=== PATIENT | male | born 1945 | race Caucasian/White ===

== ENCOUNTER 2018-02-27 11:51 | Inpatient (IN) ==
--- NOTE | 2018-02-27 13:37 | Emergency Department Report ---
General Adult HPI - General Chief complaint: Dizziness Stated complaint: high bp, dehydration Time Seen by Provider: 02/27/18 13:37 Source: patient Mode of arrival: ambulatory Limitations: no limitations - History of Present Illness HPI narrative: Patient is a 72-year-old male, presents emergency room for evaluation of nausea dehydration. Patient's been having nausea for 3-4 weeks. Doesn't really feel like eating or drinking has lost several pounds in weight. Patient has seen his primary medical physician for this, however no real elucidation of symptoms. Patient went to the doctor's office today requesting Zofran for his severe nausea at that time was found to have a blood pressure 80/40 with a heart rate in the 40s. Patient does state he has been seen by Dr. Rajput, cardiology in the past, and was told that he might eventually need a pacemaker his symptoms ever worsen. Patient denies any fevers chills diarrhea constipation or other systemic signs or symptoms. On arrival patient is RVR slower ventricular response running in the 40s although does drop down as low as 30. - Related Data Home Medications Medication Instructions Recorded Confirmed Warfarin Sodium [Coumadin] 5 mg PO VARGAS,WE,FR #0 10/06/10 02/27/18 Garlic [Garlic Oil] 1,000 mg PO DAILY #0 02/22/12 02/27/18 Warfarin Sodium 2.5 mg PO ,,,SA #0 02/28/12 02/27/18 Allopurinol [Zyloprim] 300 mg PO DAILY 02/27/18 02/27/18 Aspirin [ASA] 325 mg PO BID 02/27/18 02/27/18 Cod Liver Oil 1 each PO DAILY 02/27/18 02/27/18 Cyanocobalamin (Vitamin B-12) 2,000 mcg PO DAILY 02/27/18 02/27/18 [Vitamin B-12] Docusate Sodium [Colace] 200 mg PO HS 02/27/18 02/27/18 Ferrous Sulfate [Iron] 325 mg PO DAILY 02/27/18 02/27/18 Fluticasone Propionate 1 spray EA NOSTRIL DAILY 02/27/18 02/27/18 [Fluticasone Propionate] Furosemide [Lasix 40 mg Tab] 40 mg PO BID 02/27/18 02/27/18 Elsie 550 mg PO BID 02/27/18 02/27/18 Losartan Potassium [Cozaar] 50 mg PO DAILY 02/27/18 02/27/18 Oxycodone HCl/Acetaminophen 1 - 2 tab PO Q4-6HPRN PRN 02/27/18 02/27/18 [Oxycodon-Acetaminophen 7.5-325] PEG 3350 17gm PACKET [Miralax] 17 gm PO DAILY 02/27/18 02/27/18 Potassium Chloride [Klor-Con 10] 10 meq PO BID 02/27/18 02/27/18 Pramipexole [Mirapex] 0.25 mg PO HS 02/27/18 02/27/18 Resver/Wine/Bfl/Grpsd/Pc/C/Grp 1 each PO BID 02/27/18 02/27/18 [Red Wine Complex Capsule] Vitamin E 100 unit PO DAILY 02/27/18 02/27/18 Zinc 50 mg PO BID 02/27/18 02/27/18 levOCARNitine [l-Carnitine] 500 mg PO BID 02/27/18 02/27/18 Allergies Allergy/AdvReac Type Severity Reaction Status Date / Time blue dye Allergy Intermediate FEVER, Verified 02/27/18 12:24 SEVERE HEADACHE morphine Allergy Intermediate HALLUCINATE Verified 02/27/18 12:24 S Tetanus Vaccines and Toxoid Allergy Intermediate ARM SWELLS Verified 02/27/18 12 :24 sulfamethoxazole Allergy Unknown Verified 02/27/18 12:24 trimethoprim Allergy Unknown Verified 02/27/18 12:24 ether AdvReac Mild NAUSEA & Verified 02/27/18 12:24 VOMITING hydrocodone bit AdvReac Mild HEADACHE Uncoded 03/16/12 21:37 Review of Systems Constitutional: Denies: fever, chills, weakness Eyes: Denies: eye pain, eye discharge, vision change ENT: Denies: ear pain, throat pain, dental pain Cardiovascular: Denies: chest pain, palpitations, dyspnea on exertion Respiratory: Denies: cough, dyspnea, wheezes Gastrointestinal: Reports: nausea. Denies: abdominal pain, vomiting Genitourinary: Denies: dysuria, frequency Integumentary: Denies: alopecia Neurological: Denies: headache Psychiatric: Denies: anxiety Endocrine: Denies: fatigue Hematological/Lymphatic: Denies: easy bleeding PFSH Patient Stated Medical History Cataracts Yes: surgery 2013 Cardiac Arrhythmia Yes: bradycardia Sleep Apnea Yes Hx Kidney Stones Yes - Social History Smoking status: Never smoker Substance use type: does not use Alcohol intake frequency: does not drink Physical Exam - Limitations Limitations: no limitations - General General appearance: alert, in no apparent distress - Head Head exam: normocephalic - Eye Eye exam: Present: PERRL, EOMI - ENT ENT exam: Present: normal oropharynx, mucous membranes moist, TM's normal bilaterally - Neck Neck exam: Present: full ROM - Chest Chest inspection: Present: symmetric chest wall rise. Absent: tenderness - Respiratory Respiratory exam: Present: normal lung sounds bilaterally. Absent: respiratory distress, wheezes, stridor - Cardiovascular Cardiovascular exam: Present: normal rhythm, bradycardia, normal heart sounds - Abdominal Exam Abdominal exam: Present: soft, normal bowel sounds. Absent: distention, tenderness - Extremities Exam Extremities exam: Present: full ROM - Back Exam Back exam: Present: full ROM - Skin Skin exam: Present: warm, dry - Neurological Exam Neurological exam: Present: alert, oriented X3 - Psychiatric Psychiatric exam: Present: normal affect, normal mood Course Vital Signs Temperature 98 F 02/27/18 11:58 Pulse Rate 43 L 02/27/18 11:58 Respiratory Rate 16 02/27/18 11:58 Blood Pressure 121/79 02/27/18 11:58 Pulse Oximetry 99 02/27/18 11:58 Temperature 98 F 02/28/18 16:00 Pulse Rate 32 L 02/28/18 17:15 Respiratory Rate 24 02/28/18 17:15 Blood Pressure 133/63 02/28/18 17:01 Pulse Oximetry 99 02/28/18 17:15 Medical Decision Making - [facility] Narrative Medical decision making narrative: Have found no clearly sedation for patient's nausea, and less it's related to symptomatic bradycardia with rate as low as 30. He did have one episode where he dropped down to 29. Discuss case with Dr. Rajput, admit to the hospitalist service he will follow- up for possible pacemaker placement - Medical Records Medical records reviewed: Yes: I reviewed the patient's medical records. - Lab Data Lab results reviewed: Yes: I reviewed the patient's lab results. Result diagrams: 02/28/18 04:25 02/28/18 04:25 Lab Results 02/27/18 02/27/18 02/27/18 Range/Units 14:03 14:03 14:03 WBC 7.6 (4.5-11.0) T/MM3 RBC 4.10 L (4.50-5.90) M/MM3 Hgb 12.8 L (13.5-17.5) GM/DL Hct 39.7 L (41-53) % MCV 96.8 (80-100) UM3 MCH 31.2 (26-34) UUG MCHC 32.2 (31-37) GM/DL RDW Std Deviation 47.7 (36.9-50.2) FL Plt Count 230 (130-400) T/MM3 MPV 10.2 (9.4-12.4) UM3 Immature Gran % (Auto) (0.0-0.5) % Neut % (Auto) (33-66) % Lymph % (Auto) (23-45) % Mitchell % (Auto) (0-9.0) % Eos % (Auto) (0-4) % Baso % (Auto) (0-2) % Neut # (Auto) (1.8-7.7) T/MM3 Lymph # (Auto) (1-4.8) T/MM3 Mitchell # (Auto) (0-0.8) T/MM3 Eos # (Auto) (0-0.5) T/MM3 Baso # (Auto) (0-0.2) T/MM3 Abs Immat Gran (auto) (0.00-0.03) T/MM3 Neutrophils % (Manual) 57.0 (33-66) % Lymphocytes % (Manual) 33.0 (23-45) % Monocytes % (Manual) 7.0 (0-9.0) % Eosinophils % (Manual) 3.0 (0-4) % Neutrophils # (Manual) 4.3 (1.8-7.7) T/MM3 Lymphocytes # (Manual) 2.5 (1-4.8) T/MM3 Monocytes # (Manual) 0.5 (0-0.8) T/MM3 Eosinophils # (Manual) 0.2 (0-0.5) T/MM3 RBC Morph Comment Normal INR (0.92-1.18) D-Dimer < 150 (0-230) NG/ML Turbidity < 20 (0-20) Sodium 141 (134-144) MEQ/L Potassium 4.2 (3.6-5) MEQ/L Chloride 99 (98-107) MEQ/L Carbon Dioxide 30 (22-30) MEQ/L Anion Gap 12 (5-15) meq/L BUN 41.0 H (9-20) MG/DL Creatinine 1.6 H (0.8-1.5) mg/dL GFR Calculation 43 BUN/Creatinine Ratio 26 (6-26) RATIO Glucose 92 (75-110) MG/DL Calculated Osmolality 281 H (261-280) MOSM/KG Calcium 9.9 (8.4-10.2) MG/DL Magnesium (1.6-2.3) MG/DL Total Bilirubin 0.70 (0.20-1.30) MG/DL Icterus Index < 2 (0-7) AST 27 (17-59) U/L ALT 20 (1-50) U/L Alkaline Phosphatase 215 H (38-126) U/L Troponin I < 0.012 (0-0.12) ng/ml Total Protein 7.7 (6.3-8.2) g/dL Albumin 4.0 (3.5-5.0) g/dL Globulin 3.7 H (2.4-3.6) G/DL Albumin/Globulin Ratio 1.1 (1.1-2.2) RATIO Lipase 63 (23-300) U/L TSH (0.47-4.68) mIU/L Specimen Hemolysis < 15 (0-25) Ur Collection Type Urine Color (YELLOW) Urine Clarity Urine pH (5.0-8.0) Ur Specific [place] (1.015-1.025) Urine Protein (NEGATIVE) Urine Glucose (UA) (NEGATIVE) Urine Ketones (NEGATIVE) Urine Occult Blood (NEGATIVE) Urine Nitrate (NEGATIVE) Urine Bilirubin (NEGATIVE) Urine Urobilinogen (NORMAL) EU/DL Ur Leukocyte Esterase (NEGATIVE) Urinalysis Comment 02/27/18 02/27/18 02/28/18 Range/Units 14:36 15:03 04:25 WBC 5.5 (4.5-11.0) T/MM3 RBC 3.81 L (4.50-5.90) M/MM3 Hgb 11.9 L (13.5-17.5) GM/DL Hct 37.0 L (41-53) % MCV 97.1 (80-100) UM3 MCH 31.2 (26-34) UUG MCHC 32.2 (31-37) GM/DL RDW Std Deviation 47.1 (36.9-50.2) FL Plt Count 218 (130-400) T/MM3 MPV 10.8 (9.4-12.4) UM3 Immature Gran % (Auto) 0.0 (0.0-0.5) % Neut % (Auto) 44.0 (33-66) % Lymph % (Auto) 43.2 (23-45) % Mitchell % (Auto) 8.0 (0-9.0) % Eos % (Auto) 4.6 H (0-4) % Baso % (Auto) 0.2 (0-2) % Neut # (Auto) 2.4 (1.8-7.7) T/MM3 Lymph # (Auto) 2.4 (1-4.8) T/MM3 Mitchell # (Auto) 0.4 (0-0.8) T/MM3 Eos # (Auto) 0.3 (0-0.5) T/MM3 Baso # (Auto) 0.0 (0-0.2) T/MM3 Abs Immat Gran (auto) 0.00 (0.00-0.03) T/MM3 Neutrophils % (Manual) (33-66) % Lymphocytes % (Manual) (23-45) % Monocytes % (Manual) (0-9.0) % Eosinophils % (Manual) (0-4) % Neutrophils # (Manual) (1.8-7.7) T/MM3 Lymphocytes # (Manual) (1-4.8) T/MM3 Monocytes # (Manual) (0-0.8) T/MM3 Eosinophils # (Manual) (0-0.5) T/MM3 RBC Morph Comment INR 1.65 H (0.92-1.18) D-Dimer (0-230) NG/ML Turbidity (0-20) Sodium (134-144) MEQ/L Potassium (3.6-5) MEQ/L Chloride (98-107) MEQ/L Carbon Dioxide (22-30) MEQ/L Anion Gap (5-15) meq/L BUN (9-20) MG/DL Creatinine (0.8-1.5) mg/dL GFR Calculation BUN/Creatinine Ratio (6-26) RATIO Glucose (75-110) MG/DL Calculated Osmolality (261-280) MOSM/KG Calcium (8.4-10.2) MG/DL Magnesium (1.6-2.3) MG/DL Total Bilirubin (0.20-1.30) MG/DL Icterus Index (0-7) AST (17-59) U/L ALT (1-50) U/L Alkaline Phosphatase (38-126) U/L Troponin I (0-0.12) ng/ml Total Protein (6.3-8.2) g/dL Albumin (3.5-5.0) g/dL Globulin (2.4-3.6) G/DL Albumin/Globulin Ratio (1.1-2.2) RATIO Lipase (23-300) U/L TSH (0.47-4.68) mIU/L Specimen Hemolysis (0-25) Ur Collection Type Urine, void-cc/notcc Urine Color Yellow (YELLOW) Urine Clarity Clear Urine pH 5.5 (5.0-8.0) Ur Specific [place] 1.020 (1.015-1.025) Urine Protein Negative (NEGATIVE) Urine Glucose (UA) Negative (NEGATIVE) Urine Ketones Negative (NEGATIVE) Urine Occult Blood Negative (NEGATIVE) Urine Nitrate Negative (NEGATIVE) Urine Bilirubin Negative (NEGATIVE) Urine Urobilinogen 0.2 (NORMAL) EU/DL Ur Leukocyte Esterase Negative (NEGATIVE) Urinalysis Comment Microscopic not ind. 02/28/18 02/28/18 02/28/18 Range/Units 04:25 04:25 04:25 WBC (4.5-11.0) T/MM3 RBC (4.50-5.90) M/MM3 Hgb (13.5-17.5) GM/DL Hct (41-53) % MCV (80-100) UM3 MCH (26-34) UUG MCHC (31-37) GM/DL RDW Std Deviation (36.9-50.2) FL Plt Count (130-400) T/MM3 MPV (9.4-12.4) UM3 Immature Gran % (Auto) (0.0-0.5) % Neut % (Auto) (33-66) % Lymph % (Auto) (23-45) % Mitchell % (Auto) (0-9.0) % Eos % (Auto) (0-4) % Baso % (Auto) (0-2) % Neut # (Auto) (1.8-7.7) T/MM3 Lymph # (Auto) (1-4.8) T/MM3 Mitchell # (Auto) (0-0.8) T/MM3 Eos # (Auto) (0-0.5) T/MM3 Baso # (Auto) (0-0.2) T/MM3 Abs Immat Gran (auto) (0.00-0.03) T/MM3 Neutrophils % (Manual) (33-66) % Lymphocytes % (Manual) (23-45) % Monocytes % (Manual) (0-9.0) % Eosinophils % (Manual) (0-4) % Neutrophils # (Manual) (1.8-7.7) T/MM3 Lymphocytes # (Manual) (1-4.8) T/MM3 Monocytes # (Manual) (0-0.8) T/MM3 Eosinophils # (Manual) (0-0.5) T/MM3 RBC Morph Comment INR 1.43 H (0.92-1.18) D-Dimer (0-230) NG/ML Turbidity < 20 (0-20) Sodium 143 (134-144) MEQ/L Potassium 4.1 (3.6-5) MEQ/L Chloride 103 (98-107) MEQ/L Carbon Dioxide 30 (22-30) MEQ/L Anion Gap 10 (5-15) meq/L BUN 35.0 H (9-20) MG/DL Creatinine 1.6 H (0.8-1.5) mg/dL GFR Calculation 43 BUN/Creatinine Ratio 22 (6-26) RATIO Glucose 75 (75-110) MG/DL Calculated Osmolality 282 H (261-280) MOSM/KG Calcium 9.4 (8.4-10.2) MG/DL Magnesium 2.6 H (1.6-2.3) MG/DL Total Bilirubin (0.20-1.30) MG/DL Icterus Index < 2 (0-7) AST (17-59) U/L ALT (1-50) U/L Alkaline Phosphatase (38-126) U/L Troponin I (0-0.12) ng/ml Total Protein (6.3-8.2) g/dL Albumin (3.5-5.0) g/dL Globulin (2.4-3.6) G/DL Albumin/Globulin Ratio (1.1-2.2) RATIO Lipase (23-300) U/L TSH 0.68 (0.47-4.68) mIU/L Specimen Hemolysis < 15 (0-25) Ur Collection Type Urine Color (YELLOW) Urine Clarity Urine pH (5.0-8.0) Ur Specific [place] (1.015-1.025) Urine Protein (NEGATIVE) Urine Glucose (UA) (NEGATIVE) Urine Ketones (NEGATIVE) Urine Occult Blood (NEGATIVE) Urine Nitrate (NEGATIVE) Urine Bilirubin (NEGATIVE) Urine Urobilinogen (NORMAL) EU/DL Ur Leukocyte Esterase (NEGATIVE) Urinalysis Comment - Radiology Data Radiology results reviewed: Yes: I reviewed the patient's radiology results. CT scan abdomen/pelvis with contrast: No acute findings - EKG Data EKG #1 EKG attestation: Yes: I reviewed and interpreted this EKG. Rate: bradycardia Rhythm: A.Fib Interpretation: no acute changes Disposition Clinical Impression: Symptomatic bradycardia Disposition: 02 To [facility] Condition: Stable - Seen By: physician
[2018-02-27] MEDS ORDERED: NS 1,000 ML IV ONE (13:43)
[2018-02-27] MEDS ORDERED: ONDANSETRON 4 MG/2 ML INJECTION IVP ONE (13:46)
[2018-02-27] MEDS: SALINE FLUSH 10ml SYRINGE IVF PRN ×2 (14:09→16:09)
[2018-02-27] MEDS ORDERED: IOHEXOL 300mg/ml 100ml INJECTION ONE (15:11)
[2018-02-27] MEDS ORDERED: SALINE FLUSH 10ml SYRINGE ONE (15:11)
--- NOTE | 2018-02-27 15:49 | CT Scan Report ---
Indication: chronic abdominal pain nausea vomiting weight loss, hypoten PROCEDURE: CT abdomen pelvis w con: Encounter: Initial Comparison: 09/09/2014 Findings: CT ABDOMEN: Included portions of the lung bases are clear. Heart size normal. No pleural effusion. The gallbladder is surgically absent. There is perhaps mild intrahepatic biliary ductal dilatation secondary to postcholecystectomy state. There is a stable exophytic cyst projecting anteriorly from the mid left kidney. The spleen, pancreas, and adrenal glands are normal. The abdominal aorta is nonaneurysmal, with scattered calcific atherosclerotic disease. There is no retroperitoneal or mesenteric adenopathy. No retroperitoneal or mesenteric adenopathy. No definite bowel distention or bowel wall thickening. There is a small umbilical hernia containing omental fat. CT PELVIS: There are some prominent bilateral pelvic lymph nodes, similar to prior study, left greater than right in the anterior external iliac region. There is mild distal colonic diverticulosis without evidence of diverticulitis. The urinary bladder is not distended. There is moderate streak artifact from a right hip ORIF metallic prosthesis. There is no pelvic sidewall adenopathy. No free fluid. No definite bony destructive process. There are Schmorl's node deformities of a few lumbar spine with moderate degenerative disc disease. It acute appearing compression fracture. IMPRESSION: Mild the prominent pelvic lymph nodes, similar to prior exam. No evidence for infectious or inflammatory process. No evidence for mass or adenopathy. .
[2018-02-27] MEDS ORDERED: KETOROLAC 15 MG/ML INJECTION IVP ONE (16:07)
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
[2018-02-27] MEDS ORDERED: ACETAMINOPHEN 325 MG TABLET PO PRN (19:47)
[2018-02-27] MEDS ORDERED: BISACODYL 10 MG SUPPOSITORY RECTALLY PRN (19:47)
[2018-02-27] MEDS: NS 1,000 ML IV SCH (21:52)
[2018-02-27] MEDS: PRAMIPEXOLE 0.25 MG TABLET PO SCH (21:53)
[2018-02-27] MEDS: PANTOPRAZOLE 40 MG INJECTION IVP SCH (22:03)
[2018-02-27] MEDS: ONDANSETRON 4 MG/2 ML INJECTION IVP PRN (22:03)
[2018-02-27] MEDS: DOCUSATE SODIUM 100 MG CAPSULE PO SCH (22:03)
[2018-02-27] MEDS: ASPIRIN 325 MG TABLET PO SCH (22:04)
[2018-02-27] MEDS: Oxycodone/Apap 10/325 1 TAB PO PRN (22:34)
[2018-02-28] MEDS: ONDANSETRON 4 MG/2 ML INJECTION IVP PRN ×3 (05:29→15:52)
[2018-02-28] MEDS: Oxycodone/Apap 10/325 1 TAB PO PRN ×4 (05:29→19:54)
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
[2018-02-28] MEDS: --POM--ALLOPURINOL 300 MG TABLET PO SCH ×2 (07:54→10:38)
[2018-02-28] MEDS: FERROUS SULFATE 324 MG PO SCH ×2 (07:55→10:38)
[2018-02-28] MEDS: PANTOPRAZOLE 40 MG INJECTION IVP SCH ×3 (07:55→22:19)
[2018-02-28] MEDS: ASPIRIN 325 MG TABLET PO SCH (07:55)
[2018-02-28] MEDS ORDERED: LOSARTAN 50 MG TABLET PO SCH (09:00)
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
[2018-02-28] MEDS: NS 1,000 ML IV SCH ×2 (09:28→22:43)
[2018-02-28] MEDS ORDERED: FentaNYL 100 MCG/2 ML INJECTION IVP PRN ×2 (10:36→12:44)
[2018-02-28] MEDS: --POM--ASPIRIN *EC* 81 MG TABLET PO SCH ×2 (10:38→22:22)
[2018-02-28] MEDS: --POM--LOSARTAN 100 MG TABLET PO SCH (10:39)
[2018-02-28] MEDS: POLYETHYL GLYCOL 3350 17gm PACKET PO SCH (10:39)
--- NOTE | 2018-02-28 11:26 | Wound Care Progress Note ---
Wound Center Progress Note: Called about consult this AM. Went to see pt who has been going to the [facility]. At this time pt is an inpt at the hospital. Pt is noted to have Large ABD's on legs with Kerlix and Wendy wraps. At this time all of the dressings are remove bilaterally. Pt left leg has circumfrincal venous ulcers, macerated periwound, 75% slough, 25% grand pink, these are very painful to pt. Right leg has no open areas however it is apparent that pt has had an open area on the back of this leg recently it is also very painful. At this time debrisoft used for gentle debridment to left leg .Pt tolerated well. Right leg does not need debriedment. Right leg treated with Iodasorb on multiple areas where slough was thick. On right leg the lateral area of leg Hydra fera blue classic placed, on the meadial area leg Aquacell AG. Xtrasorb applied on top of all of the primary drsg and held in place by casting cotton. 3M wrap applied. Right leg I placed a small Xtrasorb where it appeared there was an open wound before, then applied a 3 M wrap. Pt instructed on coming to clinic for follow up either Tuesday or Saturday 03/03 or 03/06.
--- NOTE | 2018-02-28 14:21 | Progress Note ---
- Date 02/28/18 Subjective: F/U: Symptomatic bradycardia-afib with slow ventricular response. Rough day-had debridement of left leg and leg very very painful since. Burning sensation. Fentanyl helped, but effect short lived. Did tolerate Fentanyl well. Breathing stable. No chest pain. Slight nausea. Objective Vital signs: Temperature 97.9 F 02/28/18 12:00 Pulse Rate 42 L 02/28/18 10:45 Respiratory Rate 25 H 02/28/18 10:45 Blood Pressure 118/61 02/28/18 10:31 Pulse Oximetry 98 02/28/18 10:45 Height/Weight/BMI: Height 1.83 m Weight 101.9 kg Body Mass Index 32.5 - Constitutional Present: well nourished, well developed, average body habitus, cooperative - Routine HEENT Exam Head: Present: normocephalic, atraumatic Eye: Present: EOMI, PERRL ENT: Present: mucous membranes moist - Routine Respiratory Exam Present: CTA bilaterally. Absent: rales, respiratory distress, rhonchi, wheezes - Routine Cardiovascular Exam Present: bradycardia, irregularly irregular - Routine Abdominal Exam Present: soft, normoactive bowel sounds, non distended, non tender - Routine Extremities Exam Absent: cyanosis, clubbing - Routine Skin Exam Present: warm, wounds (Leg wounds wrapped ) - Routine Neurological Exam Present: alert, oriented X3, CN II-XII intact, moving all extremities, vision grossly intact, hearing grossly intact, normal speech. Absent: motor deficit, altered mental status - Routine Psychiatric Exam Present: normal affect, normal thought process, cooperative Results - Labs CBC & Chem 7: 02/28/18 04:25 02/28/18 04:25 Assessment and Plan (1) Symptomatic bradycardia Current visit: Yes Status: Acute Assessment and Plan: Assessment Symptomatic bradycardia, near syncope Epigastric pain, nausea, and weight loss Subtherapeutic INR Coronary artery disease. Systolic congestive heart failure. Atrial fibrillation, on Coumadin. Hypertension. Chronic nonhealing ulcers to both lower extremities. Peripheral neuropathy. GERD. 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 Seasonal allergies. Gout. Obesity with BMI of 31.[address] Rajput consulted for pacemaker placement - hope for placement this afternoon. Dr Fleming evaluated patient's legs. Did perform debridement to left leg -- right leg not needing debridement. With increased leg pain post debridement, will have Fentanyl 75mcg available every 30minutes for pain. Renal status stable post IV contrast yesterday - will discontinue IVF once patient no longer NPO. Will change to inpatient status secondary to severe symptomatic bradycardia. Continue with CCU monitoring until pacemaker placed. Case discussed with CM. Time spent with patient care 25 minutes. DVT Prophylaxis: Coumadin Resuscitation Status: Full Code - Time spent with patient Time with patient PN: 25 minutes - Physician Narrative Physician: Richard Joseph MD Narrative: Date: 02/28/18 Time: 1418 Hospital Course Summary Disclaimer: The visit summary below is not to be considered part of the above Progress Note. Hospital Course: 02/27/18 Admit, observation status, unclear the hospitalist service. Primary care physician: Dr. Hart. Symptomatic bradycardia and near syncope Consult Dr. Rajput Hold Coumadin; anticipate pacemaker placement. Had supratherapeutic INR last week (6.6); on admission INR = 1.6. IVF - monitor for overload Epigastric pain, nausea, and weight loss History of ulcers - start Protonix IV BID Lipase normal, CT without clear etiology for pain Hgb only minimally low at 12.8 Surgical consult - Dr. 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 Consult wound team to evaluate MARTY Dressing changes daily per pt report Normal WBC, no fever, recent Cipro use, and pt/family report improvement - unlikely to have acute infection from chronic wounds Advanced Directives is DPOA + Living Will - no feeding tube Full Code 02/28/18 Will change to inpatient status secondary to severe symptomatic bradycardia. Dr Rajput consulted for pacemaker placement - hope for placement this afternoon. Dr Fleming evaluated patient's legs. Did perform debridement to left leg -- right leg not needing debridement. With increased leg pain post debridement, will have Fentanyl 75mcg available every 30minutes for pain. Renal status stable post IV contrast yesterday - will discontinue IVF once patient no longer NPO. Continue with CCU monitoring until pacemaker placed.
[2018-02-28] MEDS: FentaNYL 100 MCG/2 ML INJECTION IVP PRN ×3 (15:16→22:24)
--- NOTE | 2018-02-28 16:47 | Consultation ---
DATE OF CONSULTATION 02/28/2018 FINDINGS Mr. Machado is a 72-year-old gentleman whom I was asked to see today as a result of his history for venous ulcers, history for abdominal pain. The patient is known to my surgical practice but it has been a number of years since I have seen him. I did take care of the patient in the remote past at our wound center as a result of his venous ulcers. Patient states that he has had chronic venous ulcers for the last 10 years or more. He has been receiving his wound care through [facility]. He informs me that they have been placing Medihoney overlying his wounds followed by an Ashok wrap. The patient states that he takes off the wrap on a daily basis and reapplies the Medihoney. He has been having increasing discomfort since switching to the Medihoney dressings per his report. Yesterday the patient did undergo a mechanical debriding at the bedside by our wound staff followed by application of a 3M multilayer wrap. The patient states he is having some increased discomfort today involving his left lower extremity. Patient states that over the last several weeks, he has been on numerous antibiotics. Patient states that he has been experiencing a fair amount of abdominal pain which he attributes to the antibiotic usage. The patient states that this pain he is having however, was similar to pain that he had in the past with peptic ulcer disease. Today, the patient denied any element of abdominal pain. He informed me this morning that actually over the last few days his abdominal pain has improved. The patient is to receive a pacemaker later today. He was found to be bradycardic in nature. Patient states that yesterday he did have a component of some chest discomfort. PAST MEDICAL HISTORY Performed by my nurse practitioner, Trent Phelps. PAST SURGICAL HISTORY Performed by my nurse practitioner, Trent Phelps. MEDICATIONS Performed by my nurse practitionerTrent. ALLERGIES Performed by my nurse practitionerTrent. SOCIAL HISTORY Performed by my nurse practitionerTrent. FAMILY HISTORY Performed by my nurse practitionerTrent. REVIEW OF SYSTEMS Performed by my nurse practitionerTrent. PHYSICAL EXAMINATION GENERAL: Mr. Machado is a 72-year-old gentleman who does not appear to be in any acute distress. In fact, upon my entering the room, he was resting comfortably. When I did awaken the patient, however, he began to complain of severe discomfort to his left lower extremity. and daughter were present during the interview and physical examination process. They informed me that this is not unusual for Mr. Machado, that he has been experiencing a fair amount of discomfort for "a long time" involving his lower extremity. VITALS: Temperature 97.9, pulse 42, respirations 25, blood pressure 118/61, SaO2 98% on room air. HEENT: Normocephalic. Pupils are equally round and react to light and accommodation. CHEST: Clear to auscultation bilaterally. HEART: Regular rate and rhythm. Normal S1, S2, without gallops, murmurs or clicks. ABDOMEN: Palpation of the abdomen this morning reveals it to be soft and completely nontender. There was no evidence for guarding or rebound. EXTREMITIES: Attention was focused to the left lower extremity. Patient does have a 3M multilayer wrap in place. The patient was able to move his toes without difficulty. There is no pallor of the toes to suggest any component of vascular compromise with the 3M multilayer wrap in place. 3M wrap was placed yesterday and I did not remove the wrap. did have photos of his legs that were taken yesterday per her report. One can see large venous ulcers involving the medial and lateral aspect of the tibial region. The area of involvement according to the pictures appear to be perhaps 12-14 cm in total length. Venous ulcer disease is quite extensive in nature. NEURO: Cranial nerves II-XII grossly intact. Patient without focal, motor, or sensory deficits. LABORATORY/RADIOGRAPHIC EVALUATION/REVIEW OF PATIENT'S CHART I did review the patient's current orders and agree with current management. He is being treated empirically for peptic ulcer disease and is on Protonix 40 mg IV b.i.d. I do see that Cardiology is planning on later today proceeding with placement of a single chamber pacemaker. From a laboratory standpoint, his white count is 5.5. Hemoglobin today was slightly low at 11.9. BMP was obtained and found to have slightly elevated BUN of 35.0 and a creatinine of 1.6. CT scan of his abdomen and pelvis was obtained and compared to a prior CT scan on 09/09/2014. CT scan was essentially within normal limits with the exception of some mild prominent pelvic lymph nodes similar to prior exam back in 2013. There was no evidence for infectious or inflammatory process present within the abdomen. No evidence for mass or adenopathy. ASSESSMENT 72-year-old gentleman with longstanding history for chronic venous insufficiency , venous ulcer disease, recent presentation of symptomatic bradycardia, history for epigastric abdominal pain which has now resolved per patient's report. PLAN My recommendation would be that we would go ahead and proceed today with placement of permanent pacemaker as recommended by Cardiology. I would recommend that we continue to follow the patient from a clinical standpoint in regards to his epigastric abdominal pain. As long as the patient states that his abdominal pain continues to improve, I would not recommend proceeding with endoscopic evaluation. If on the other hand, the patient would state that he is having increasing epigastric abdominal pain or inability to take adequate p.o. as a result of epigastric abdominal pain then at that time I would recommend proceeding with esophagogastroduodenoscopy. I did discuss treatment of venous ulcers with the patient. I informed the patient that the mainstay of treatment for venous ulcer disease is good compression and local wound care. I do not feel that he is obtaining good compression by applying an Ashok wrap loosely on a daily basis. The patient and family members stated they would like to transfer his care to our wound care facility. I informed the family I would be more than happy to see him on an outpatient basis and provide care for his venous ulcers. I do not feel at this time we need to remove his multilayer wrap. It does not appear there is any component of vascular compromise after placement of the wrap. Will continue to follow along with the patient during his hospitalization in regards to his venous ulcer disease and epigastric abdominal pain. PEARL
[2018-02-28] MEDS ORDERED: CEFAZOLIN 1 G INJECTION ONE (16:58)
[2018-02-28] MEDS ORDERED: FentaNYL 250 MCG/5 ML INJECTION ONE (16:58)
[2018-02-28] MEDS ORDERED: BACITRACIN 50,000 UNIT INJECTION ONE (16:59)
[2018-02-28] MEDS ORDERED: MIDAZOLAM 2mg/2ml INJECTION ONE ×2 (16:59→18:00)
[2018-02-28] MEDS ORDERED: SALINE FLUSH 10ml SYRINGE ONE (16:59)
[2018-02-28] MEDS ORDERED: LIDOCAINE 1% (10mg/ml) 30ml SDV INJ ONE (17:50)
[2018-02-28] MEDS ORDERED: SALINE FLUSH 10ml SYRINGE IV PRN (18:57)
[2018-02-28] MEDS: DOCUSATE SODIUM 100 MG CAPSULE PO SCH (22:18)
[2018-02-28] MEDS: PRAMIPEXOLE 0.25 MG TABLET PO SCH (22:19)
[2018-02-28] MEDS ORDERED: FALL RISK - PHARMACY CONSULT MC ONE (23:26)
[2018-03-01] MEDS: Oxycodone/Apap 10/325 1 TAB PO PRN ×3 (00:03→09:13)
[2018-03-01] MEDS: CEFAZOLIN 2 G in NS 100 ML IV SCH ×2 (01:01→09:14)
[2018-03-01] MEDS: FentaNYL 100 MCG/2 ML INJECTION IVP PRN (04:43)
[2018-03-01] MEDS: ONDANSETRON 4 MG/2 ML INJECTION IVP PRN ×3 (05:26→20:56)
--- NOTE | 2018-03-01 08:11 | XRay Report ---
Indication: ppm PROCEDURE: XR chest 1V: Encounter: Initial Comparison: February 23, 2012 Findings: New left-sided single lead cardiac pacemaker with a right ventricular lead. No evidence of lead fracture. No pneumothorax. Lungs are stable and clear. Cardiac silhouette remains moderately enlarged. Mediastinal contours and pulmonary vascularity are stable. Impression: No visible pneumothorax following pacemaker placement. .
[2018-03-01] MEDS: FentaNYL 250 MCG/5 ML INJECTION IVP PRN ×6 (08:18→22:10)
--- NOTE | 2018-03-01 08:24 | XRay Report ---
Indication: ppm PROCEDURE: XR chest 1V: Encounter: Initial Comparison: February 28, 2018 Findings: Left pacemaker is stable in position. No visible pneumothorax. Lungs are stable and grossly clear. Stable enlargement of the cardiac silhouette. Mediastinal contours and pulmonary vascularity are unchanged. Impression: Stable appearance of the left pacemaker without evidence of a pneumothorax. .
--- NOTE | 2018-03-01 08:25 | Progress Note ---
- Date 03/01/18 Subjective: F/U: Symptomatic bradycardia-afib with slow ventricular response. S/P single- chamber pacemaker implantation by Dr. Rajput on 02/28/18. Patient seen sitting in bed eating breakfast this morning. He reports he has pain at the pacemaker site and has severe pain in his legs following his debridement with Dr. Fleming yesterday. He has no chest pain, shortness of breath, nausea or vomiting. Objective Vital signs: Temperature 98.3 F 03/01/18 08:00 Pulse Rate 70 03/01/18 08:00 Respiratory Rate 18 03/01/18 08:00 Blood Pressure 143/81 H 03/01/18 08:00 Pulse Oximetry 99 03/01/18 08:00 Height/Weight/BMI: Weight 109.5 kg - Constitutional Present: no acute distress, well nourished, well developed - Routine HEENT Exam Head: Present: normocephalic, atraumatic - Routine Respiratory Exam Present: CTA bilaterally. Absent: wheezes - Routine Cardiovascular Exam Present: RRR, no murmur Comments: Pacer site without evidence of infection. - Routine Abdominal Exam Present: soft, non distended, non tender - Routine Extremities Exam Present: normal capillary refill Comments: Has a multilayer wrap to the lower extremities bilaterally. - Routine Skin Exam Present: dry, warm - Routine Neurological Exam Present: alert, CN II-XII intact - Routine Lymphatic Exam Lymphatic: Absent: adenopathy - Routine Psychiatric Exam Present: normal affect, cooperative Results - Labs CBC & Chem 7: 03/01/18 04:35 03/01/18 04:35 Assessment and Plan (1) Symptomatic bradycardia Current visit: Yes Status: Acute Assessment and Plan: Assessment Symptomatic bradycardia, near syncope. S/P single chamber pacemaker by Dr. Rajput on 02/28/18 Epigastric pain, nausea, and weight loss Subtherapeutic INR Coronary artery disease. Systolic congestive heart failure. Atrial fibrillation, on Coumadin. Hypertension. Chronic nonhealing ulcers to both lower extremities. Peripheral neuropathy. GERD. 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 Seasonal allergies. Gout. Obesity with BMI of 31.7 Plan Pacemaker placement by Dr. Rajput yesterday Per cardiology: - Tele and EKG paced, rate improved to 60-70s - Remove sling 24hrs post, wear at night only for 3 weeks - No driving for raising elbow above the shoulder for 3 weeks - Incision check in 1 week - Minocycline 100mg po BID for 7 days Using fentanyl 75 g at least hourly this morning due to pain from the debridement. Initiate OxyContin 30 mg every 12 hours routinely and use oxycodone 15 mg every 3 hours when necessary pain. Renal function improved, hemoglobin stable. DVT Prophylaxis: Coumadin Resuscitation Status: Full Code - Time spent with patient Time with patient PN: 25 minutes - Physician Narrative Physician: Richard Joseph MD Narrative: Date: 03/01/18 Time: 1814 Have independently interviewed and examined pt. Chart reviewed. Case discussed with my PA. Care plan developed with my supervision; agree with above. Doing fair - leg pain bothersome. Notes less nausea and ab pain. Breathing stable. Lungs: decreased, no distress CV: irregularly irregular AB: soft nt MSE: awake alert Plan: With significant pain post debridement, would recommend routine use of long active oxycodone and having IR oxycodone for breakthrough pain - attempt to minimize excess acetaminophen. Will consult PT/OT to evaluate functional status. May stop IVF as taking oral better and renal status stable. Hospital Course Summary Disclaimer: The visit summary below is not to be considered part of the above Progress Note. Hospital Course: 02/27/18 Admit, observation status, unclear the hospitalist service. Primary care physician: Dr. Hart. Symptomatic bradycardia and near syncope Consult Dr. Rajput Hold Coumadin; anticipate pacemaker placement. Had supratherapeutic INR last week (6.6); on admission INR = 1.6. IVF - monitor for overload Epigastric pain, nausea, and weight loss History of ulcers - start Protonix IV BID Lipase normal, CT without clear etiology for pain Hgb only minimally low at 12.8 Surgical consult - Dr. 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 Consult wound team to evaluate MARTY Dressing changes daily per pt report Normal WBC, no fever, recent Cipro use, and pt/family report improvement - unlikely to have acute infection from chronic wounds Advanced Directives is DPOA + Living Will - no feeding tube Full Code 02/28/18 Will change to inpatient status secondary to severe symptomatic bradycardia. Dr Rajput consulted for pacemaker placement - hope for placement this afternoon. Dr Fleming evaluated patient's legs. Did perform debridement to left leg -- right leg not needing debridement. With increased leg pain post debridement, will have Fentanyl 75mcg available every 30minutes for pain. Renal status stable post IV contrast yesterday - will discontinue IVF once patient no longer NPO. Continue with CCU monitoring until pacemaker placed. 03/01/[address] Rajput yesterday Per cardiology: - Tele and EKG paced, rate improved to 60-70s - Remove sling 24hrs post, wear at night only for 3 weeks - No driving for raising elbow above the shoulder for 3 weeks - Incision check in 1 week - Minocycline 100mg po BID for 7 days Using fentanyl 75 g at least hourly this morning due to pain from the debridement. Initiate OxyContin 30 mg every 12 hours routinely during hospitalization, and use oxycodone 15 mg every 3 hours when necessary pain. Can discontinue IVF. Renal function improved, hemoglobin stable.
[2018-03-01] MEDS: --POM--ALLOPURINOL 300 MG TABLET PO SCH (09:13)
[2018-03-01] MEDS: --POM--ASPIRIN *EC* 81 MG TABLET PO SCH ×2 (09:13→20:58)
[2018-03-01] MEDS: FUROSEMIDE 40 MG TABLET PO SCH ×2 (09:14→14:19)
[2018-03-01] MEDS: FERROUS SULFATE 324 MG PO SCH (09:14)
[2018-03-01] MEDS: --POM--LOSARTAN 100 MG TABLET PO SCH (09:15)
[2018-03-01] MEDS: PANTOPRAZOLE 40 MG INJECTION IVP SCH ×2 (09:15→20:57)
[2018-03-01] MEDS: POLYETHYL GLYCOL 3350 17gm PACKET PO SCH (09:15)
--- NOTE | 2018-03-01 09:42 | Cardiology Progress Note ---
<Elizabeth Byrd - Last Filed: 03/02/18 11:11> Subjective Principal diagnosis: bradycardia Interval history: Ayo is seen in follow up for bradycardia. He is s/p single chamber PPM. He reports pain and tenderness at incision site as well as his left leg wound which was debrided by Dr. Fleming yesterday. He denies chest pressure, tightness, palpitations, dyspnea. Exam Vital signs: Temperature 98.3 F 03/01/18 08:00 Pulse Rate 70 03/01/18 08:00 Respiratory Rate 18 03/01/18 08:00 Blood Pressure 143/81 H 03/01/18 08:00 Pulse Oximetry 99 03/01/18 08:00 Inpatient Medications: Generic Name Dose Route Start Last Admin Trade Name Freq PRN Reason Stop Dose Admin Acetaminophen 650 mg 02/27/18 19:47 02/28/18 08:45 Tylenol PO 650 mg Q5H PRN Administration Discomfort Allopurinol 300 mg 02/28/18 09:00 03/01/18 09:13 Zyloprim PO 300 mg DAILY DANAY Administration Aspirin 324 mg 02/28/18 09:00 03/01/18 09:13 Ecotrin PO 324 mg BID DANAY Administration Bisacodyl 10 mg 02/27/18 19:47 Dulcolax RECTALLY DAILY PRN Constipation Docusate Sodium 100 mg 02/27/18 21:00 02/28/18 22:18 Colace PO 100 mg HS DANAY Administration Fentanyl 75 mcg 03/01/18 08:15 03/01/18 09:22 Sublimaze IVP 75 mcg Q30MIN PRN Administration Pain Ferrous Sulfate 324 mg 03/01/18 08:00 03/01/18 09:14 Feosol PO 324 mg WB DANAY Administration Furosemide 40 mg 03/01/18 08:00 03/01/18 09:14 Lasix 40 Mg Tab PO 40 mg 0800,1400 DANAY Administration Sodium Chloride 1,000 mls @ 75 mls/hr 02/27/18 19:47 03/01/18 04:56 Normal Saline IV 75 mls/hr .[id number] DANAY Infusion Losartan Potassium 50 mg 02/28/18 09:00 03/01/18 09:15 Cozaar PO 50 mg DAILY DANAY Administration Magnesium Hydroxide 30 ml 02/27/18 19:47 Mom PO DAILY PRN Constipation Minocycline HCl 100 mg 03/01/18 18:00 Minocin PO 03/08/18 21:30 BID DANAY Ondansetron HCl 4 mg 02/27/18 19:47 03/01/18 05:26 Zofran IVP 4 mg Q6H PRN Administration Nausea Oxycodone/Acetaminophen 1 tab 02/27/18 19:47 03/01/18 09:13 Percocet 10/325 PO 1 tab Q4H PRN Administration Pain Oxycodone/Acetaminophen 1 - 2 tab 02/28/18 18:57 Percocet 5/325 PO Q6H PRN Pain Pantoprazole Sodium 40 mg 02/27/18 21:00 03/01/18 09:15 Protonix Iv IVP 40 mg BID [facility] Administration Polyethylene Glycol 17 gm 02/28/18 09:00 03/01/18 09:15 Miralax PO 17 gm DAILY [facility] Administration Potassium Chloride 10 meq 03/01/18 08:00 03/01/18 09:13 Micro-K 10 Meq Capsule PO 10 meq BIDBS [facility] Administration Pramipexole Dihydrochloride 0.25 mg 02/27/18 21:00 02/28/18 22:19 Mirapex PO Not Given HS [facility] Sodium Chloride 10 - 80 ml 02/27/18 13:43 02/27/18 16:09 Iv Flush IVF 10 ml PRN PRN Administration Flushing Sodium Chloride 10 ml 02/28/18 18:57 Iv Flush IV PRN PRN Flushing Warfarin Sodium 2.5 mg 03/02/18 12:00 Coumadin PO [email or web address] [facility] Warfarin Sodium 5 mg 03/01/18 12:00 Coumadin PO [email or web address] [facility] Discontinued Medications Generic Name Dose Route Start Last Admin Trade Name Freq PRN Reason Stop Dose Admin Aspirin 325 mg 02/27/18 21:00 02/28/18 07:55 Asa PO 325 mg BID [facility] Administration Fentanyl 50 mcg 02/28/18 10:36 02/28/18 10:42 Fentanyl IVP 50 mcg ONE TIME PRN Administration Fentanyl 75 mcg 02/28/18 12:44 02/28/18 12:46 Fentanyl IVP 75 mcg Q2HR PRN Administration Fentanyl 75 mcg 02/28/18 14:14 03/01/18 04:43 Fentanyl IVP 75 mcg Q30MIN PRN Administration Pain Ferrous Sulfate 324 mg 02/28/18 09:00 02/28/18 10:38 Feosol PO Not Given DAILY DANAY Sodium Chloride 1,000 mls @ 1,000 mls/hr 02/27/18 13:43 02/27/18 15:23 Normal Saline IV 02/27/18 14:42 Infused .Q1H ONE Infusion Cefazolin Sodium 2 g/ Sodium 100 mls @ 200 mls/hr 03/01/18 01:00 03/01/18 09: 14 Chloride IV 03/01/18 09:29 100 mls/hr Q8HR DANAY Administration Ketorolac Tromethamine 15 mg 02/27/18 16:07 02/27/18 16:09 Toradol Inj IVP 02/27/18 16:08 15 mg O ONE Administration Losartan Potassium 50 mg 02/28/18 09:00 02/28/18 07:55 Cozaar PO 50 mg DAILY DANAY Administration Ondansetron HCl 4 mg 02/27/18 13:46 02/27/18 14:08 Zofran IVP 02/27/18 13:47 4 mg O ONE Administration Pharmacy Consult each 02/28/18 23:26 Pharmacy Consult - Fall Risk 02/28/18 23:27 ONE TIME ONE - Constitutional no acute distress, well nourished, cooperative - Routine HEENT Exam Head: Present: normocephalic ENT: Present: mucous membranes moist - Routine Neck Exam Absent: JVD, carotid bruit - Routine Chest/Breast/Axilla Exam Chest wall: Present: tenderness, pacemaker - Routine Respiratory Exam Present: CTA bilaterally. Absent: dyspnea, rales, wheezes - Routine Cardiovascular Exam Present: RRR, no murmur - Routine Abdominal Exam Present: soft, non tender - Routine Extremities Exam Present: edema - Routine Skin Exam Present: wounds (LLE) - Routine Neurological Exam Present: alert, oriented X3 - Routine Psychiatric Exam Present: normal affect, normal thought process Results 03/01/18 04:35 03/01/18 04:35 CBC 03/01/18 Range/Units 04:35 WBC 4.9 (4.5-11.0) T/MM3 RBC 3.86 L (4.50-5.90) M/MM3 Hgb 12.1 L (13.5-17.5) GM/DL Hct 37.6 L (41-53) % Plt Count 216 (130-400) T/MM3 Neut # (Auto) 2.8 (1.8-7.7) T/MM3 Lymph # (Auto) 1.5 (1-4.8) T/MM3 [place] # (Auto) 0.4 (0-0.8) T/MM3 Eos # (Auto) 0.1 (0-0.5) T/MM3 Baso # (Auto) 0.0 (0-0.2) T/MM3 Comprehensive Metabolic Panel 03/01/18 Range/Units 04:35 Sodium 144 (134-144) MEQ/L Potassium 4.1 (3.6-5) MEQ/L Chloride 108 H (98-107) MEQ/L Carbon Dioxide 26 (22-30) MEQ/L BUN 27.0 H (9-20) MG/DL Creatinine 1.3 D (0.8-1.5) mg/dL Glucose 98 (75-110) MG/DL Calcium 9.3 (8.4-10.2) MG/DL Intake and Output 02/28/18 03/01/18 03/01/18 22:59 06:59 14:59 Intake Total 603.75 / 753.75 928.75 / 928.75 240 / 240 Output Total 225 / 225 Balance 603.75 / 628.75 703.75 / 703.75 240 / 240 Intake: IV 503.75 / 653.75 528.75 / 528.75 Cefazolin 2 g In Ns 100 ml @ 100 / 100 200 mls/hr IV Q8HR DANAY Rx#: [id number] Ns 1,000 ml @ 75 mls/hr IV . 503.75 / 653.75 428.75 / 428.75 [id number] [facility] Rx#:[id number] Oral 100 / 100 400 / 400 240 / 240 Output: Urine 225 / 225 Other: Urine Appearance Clear Urine Color Light Veronika Urine Odor Normal Stool Color Brown Stool Consistency Soft Formed Size of Bowel Movement Small # Voids 1 # Bowel Movements 1 Weight 241 lb 6.499 oz Patient Weight 03/02/18 06:59 Weight 241 lb 6.499 oz - Imaging and Cardiology Imaging & Cardiology Narrative: Date of Exam: 03/01/18 Ordering Provider: Artur Rajput MD Type of Exam(s): XR chest 1V Reason for Exam(s): ppm Indication: ppm PROCEDURE: XR chest 1V: Encounter: Initial Comparison: February 28, 2018 Findings: Left pacemaker is stable in position. No visible pneumothorax. Lungs are stable and grossly clear. Stable enlargement of the cardiac silhouette. Mediastinal contours and pulmonary vascularity are unchanged. Impression: Stable appearance of the left pacemaker without evidence of a pneumothorax. 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 03/01/18 Tenderness at incision, dressing removed, incision C/D/I - Tele and EKG paced, rate improved to 60-70s - CXR unremarkable, no pneumo - Remove sling 24hrs post, wear at night only for 3 weeks - No driving for raising elbow above the shoulder for 3 weeks - Incision check in 1 week - Minocycline 100mg po BID for 7 days Hospital Course Summary Disclaimer: The visit summary below is not to be considered part of the above Progress Note. Hospital Course: 02/27/18 Admit, observation status, unclear the hospitalist service. Primary care physician: Dr. Hart. Symptomatic bradycardia and near syncope Consult Dr. Rajput Hold Coumadin; anticipate pacemaker placement. Had supratherapeutic INR last week (6.6); on admission INR = 1.6. IVF - monitor for overload Epigastric pain, nausea, and weight loss History of ulcers - start Protonix IV BID Lipase normal, CT without clear etiology for pain Hgb only minimally low at 12.8 Surgical consult - Dr. 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 Consult wound team to evaluate MARTY Dressing changes daily per pt report Normal WBC, no fever, recent Cipro use, and pt/family report improvement - unlikely to have acute infection from chronic wounds Advanced Directives is DPOA + Living Will - no feeding tube Full Code <Artur Rajput - Last Filed: 03/03/18 14:41> Exam Vital signs: Temperature 97.7 F 03/03/18 12:00 Pulse Rate 69 03/03/18 12:00 Respiratory Rate 10 03/03/18 12:00 Blood Pressure 138/79 03/03/18 12:00 Pulse Oximetry 98 03/03/18 12:00 Inpatient Medications: Generic Name Dose Route Start Last Admin Trade Name Freq PRN Reason Stop Dose Admin Acetaminophen 650 mg 02/27/18 19:47 02/28/18 08:45 Tylenol PO 650 mg Q5H PRN Administration Discomfort Allopurinol 300 mg 02/28/18 09:00 03/03/18 08:57 Zyloprim PO 300 mg DAILY DANAY Administration Aspirin 324 mg 02/28/18 09:00 03/03/18 08:56 Ecotrin PO 324 mg BID DANAY Administration Bisacodyl 10 mg 02/27/18 19:47 Dulcolax RECTALLY DAILY PRN Constipation Docusate Sodium 100 mg 02/27/18 21:00 03/02/18 21:13 Colace PO 100 mg HS DANAY Administration Fentanyl 75 mcg 03/01/18 08:15 03/02/18 07:37 Sublimaze IVP 75 mcg Q30MIN PRN Administration Pain Ferrous Sulfate 324 mg 03/01/18 08:00 03/03/18 08:57 Feosol PO 324 mg WB DANAY Administration Furosemide 40 mg 03/01/18 08:00 03/03/18 08:56 Lasix 40 Mg Tab PO 40 mg 0800,1400 DANAY Administration Losartan Potassium 50 mg 02/28/18 09:00 03/03/18 08:56 Cozaar PO 50 mg DAILY DANAY Administration Magnesium Hydroxide 30 ml 02/27/18 19:47 Mom PO DAILY PRN Constipation Minocycline HCl 100 mg 03/01/18 18:00 03/03/18 08:56 Minocin PO 03/08/18 21:30 100 mg BID DANAY Administration Ondansetron HCl 4 mg 02/27/18 19:47 03/03/18 10:14 Zofran IVP 4 mg Q6H PRN Administration Nausea Oxycodone HCl 15 mg 03/01/18 10:03 03/02/18 00:09 Roxicodone *Ir* PO 15 mg Q3H PRN Administration Pain Oxycodone HCl 40 mg 03/02/18 12:15 03/03/18 08:28 Oxycontin PO Not Given Q12HR DANAY Oxycodone/Acetaminophen 1 - 2 tab 02/28/18 18:57 03/02/18 15:02 Percocet 5/325 PO 1 tab Q6H PRN Administration Pain Oxycodone/Acetaminophen 2 tab 03/02/18 12:15 03/03/18 12:26 Percocet 10/325 PO 0.5 tab Q4H DANAY Administration Pantoprazole Sodium 40 mg 03/02/18 17:00 03/03/18 05:47 Protonix Tab PO 40 mg ACBID DANAY Administration Polyethylene Glycol 17 gm 02/28/18 09:00 03/03/18 08:56 Miralax PO 17 gm DAILY DANAY Administration Potassium Chloride 10 meq 03/01/18 08:00 03/03/18 08:57 Micro-K 10 Meq Capsule PO 10 meq BIDBS DANAY Administration Pramipexole Dihydrochloride 0.25 mg 02/27/18 21:00 03/02/18 21:12 Mirapex PO 0.25 mg HS DANAY Administration Sodium Chloride 10 - 80 ml 02/27/18 13:43 03/02/18 15:03 Iv Flush IVF 20 ml PRN PRN Administration Flushing Sodium Chloride 10 ml 02/28/18 18:57 03/03/18 10:14 Iv Flush IV 10 ml PRN PRN Administration Flushing Warfarin Sodium 2.5 mg 03/02/18 12:00 03/02/18 12:25 Coumadin PO 2.5 mg [email or web address] DANAY Administration Warfarin Sodium 5 mg 03/01/18 12:00 03/03/18 12:27 Coumadin PO 5 mg [email or web address] [facility] Administration Discontinued Medications Generic Name Dose Route Start Last Admin Trade Name Freq PRN Reason Stop Dose Admin Aspirin 325 mg 02/27/18 21:00 02/28/18 07:55 Asa PO 325 mg BID DANAY Administration Fentanyl 50 mcg 02/28/18 10:36 02/28/18 10:42 Fentanyl IVP 50 mcg ONE TIME PRN Administration Fentanyl 75 mcg 02/28/18 12:44 02/28/18 12:46 Fentanyl IVP 75 mcg Q2HR PRN Administration Fentanyl 75 mcg 02/28/18 14:14 03/01/18 04:43 Fentanyl IVP 75 mcg Q30MIN PRN Administration Pain Ferrous Sulfate 324 mg 02/28/18 09:00 02/28/18 10:38 Feosol PO Not Given DAILY DANAY Sodium Chloride 1,000 mls @ 1,000 mls/hr 02/27/18 13:43 02/27/18 15:23 Normal Saline IV 02/27/18 14:42 Infused .Q1H ONE Infusion Sodium Chloride 1,000 mls @ 75 mls/hr 02/27/18 19:47 03/01/18 14:16 Normal Saline IV 75 mls/hr .[id number] DANAY Administration Cefazolin Sodium 2 g/ Sodium 100 mls @ 200 mls/hr 03/01/18 01:00 03/01/18 09: 44 Chloride IV 03/01/18 09:29 Infused Q8HR DANAY Infusion Ketorolac Tromethamine 15 mg 02/27/18 16:07 02/27/18 16:09 Toradol Inj IVP 02/27/18 16:08 15 mg O ONE Administration Losartan Potassium 50 mg 02/28/18 09:00 02/28/18 07:55 Cozaar PO 50 mg DAILY DANAY Administration Ondansetron HCl 4 mg 02/27/18 13:46 02/27/18 14:08 Zofran IVP 02/27/18 13:47 4 mg O ONE Administration Oxycodone HCl 30 mg 03/01/18 10:15 03/02/18 08:29 Oxycontin PO 30 mg Q12HR DANAY Administration Oxycodone/Acetaminophen 1 tab 02/27/18 19:47 03/01/18 09:13 Percocet 10/325 PO 1 tab Q4H PRN Administration Pain Pantoprazole Sodium 40 mg 02/27/18 21:00 03/02/18 08:21 Protonix Iv IVP 40 mg BID DANAY Administration Pharmacy Consult each 02/28/18 23:26 Pharmacy Consult - Fall Risk [facility] 02/28/18 23:27 ONE TIME ONE Results 03/01/18 04:35 03/02/18 04:25 Intake and Output 03/02/18 03/03/18 03/03/18 22:59 06:59 14:59 Intake Total 540 / 540 400 / 400 480 / 480 Output Total 250 / 250 475 / 475 Balance 290 / 290 -75 / -75 480 / 480 Intake: Oral 540 / 540 400 / 400 480 / 480 Output: Urine 250 / 250 475 / 475 Other: Urine Appearance Clear Clear Urine Color Yellow Light Veronika Stool Color Brown Size of Bowel Movement Small # Voids 1 Weight 109.3 kg Patient Weight 03/04/18 06:59 Weight 109.3 kg Assessment and Plan - Assessment and Plan (1) Symptomatic bradycardia Current visit: Yes Status: Acute (2) Thoracic aortic aneurysm without rupture Current visit: Yes Status: Chronic (3) Paroxysmal atrial fibrillation Current visit: Yes Status: Chronic (4) Pulmonary hypertension Current visit: Yes Status: Chronic (5) Atherosclerotic heart disease of [place] coronary artery without angina pectoris Current visit: Yes Status: Chronic (6) Essential (primary) hypertension Current visit: Yes Status: Chronic (7) Mixed hyperlipidemia Current visit: Yes Status: Chronic - Attestation Attestation Narrative: 03/03/18 14:41 Recommendation After examining the patient I agree with the above assessment. I am involved in the formulation of the patient's plan of care. Hospital Course Summary Disclaimer: The visit summary below is not to be considered part of the above Progress Note.
[2018-03-01] MEDS ORDERED: Oxycodone *IR* 15 MG TABLET PO PRN (10:03)
[2018-03-01] MEDS: WARFARIN 5 MG TABLET PO SCH (12:40)
[2018-03-01] MEDS: NS 1,000 ML IV SCH (14:16)
[2018-03-01 16:09] VITALS: BMI 32.7
[2018-03-01] MEDS: MINOCYCLINE 100 MG CAPSULE PO SCH (18:18)
[2018-03-01] MEDS: SALINE FLUSH 10ml SYRINGE IVF PRN (20:56)
[2018-03-01] MEDS: DOCUSATE SODIUM 100 MG CAPSULE PO SCH (20:58)
[2018-03-01] MEDS: PRAMIPEXOLE 0.25 MG TABLET PO SCH ×2 (20:59→21:03)
[2018-03-02] MEDS: SALINE FLUSH 10ml SYRINGE IVF PRN ×3 (03:32→15:03)
[2018-03-02] MEDS: FentaNYL 250 MCG/5 ML INJECTION IVP PRN ×2 (03:32→07:37)
[2018-03-02] MEDS: Oxycodone/Acetaminophen 5/325 1 TAB PO PRN ×2 (05:13→15:02)
[2018-03-02] MEDS: ONDANSETRON 4 MG/2 ML INJECTION IVP PRN ×3 (07:36→21:10)
[2018-03-02] MEDS: FUROSEMIDE 40 MG TABLET PO SCH ×2 (07:37→15:02)
[2018-03-02] MEDS: PANTOPRAZOLE 40 MG INJECTION IVP SCH (08:21)
[2018-03-02] MEDS: MINOCYCLINE 100 MG CAPSULE PO SCH ×2 (08:23→21:12)
[2018-03-02] MEDS: FERROUS SULFATE 324 MG PO SCH (08:23)
[2018-03-02] MEDS: --POM--LOSARTAN 100 MG TABLET PO SCH (08:24)
[2018-03-02] MEDS: --POM--ASPIRIN *EC* 81 MG TABLET PO SCH ×2 (08:24→21:13)
[2018-03-02] MEDS: --POM--ALLOPURINOL 300 MG TABLET PO SCH (08:25)
[2018-03-02] MEDS: POLYETHYL GLYCOL 3350 17gm PACKET PO SCH (08:26)
--- NOTE | 2018-03-02 11:18 | Cardiology Progress Note ---
<Elizabeth Byrd M - Last Filed: 03/02/18 14:47> Subjective Principal diagnosis: bradycardia Interval history: Ayo is seen in follow up for bradycardia. He is s/p single chamber PPM. He states tenderness at incision site is improved and lower leg pain is controlled with the use of IV pain meds, he is hopeful to try oral pain meds soon. He denies chest pressure, tightness, palpitations, dyspnea. Exam Vital signs: Temperature 98.3 F 03/02/18 07:31 Pulse Rate 73 03/02/18 07:31 Respiratory Rate 24 03/02/18 07:31 Blood Pressure 152/89 H 03/02/18 07:31 Pulse Oximetry 97 03/02/18 07:31 Inpatient Medications: Generic Name Dose Route Start Last Admin Trade Name Freq PRN Reason Stop Dose Admin Acetaminophen 650 mg 02/27/18 19:47 02/28/18 08:45 Tylenol PO 650 mg Q5H PRN Administration Discomfort Allopurinol 300 mg 02/28/18 09:00 03/02/18 08:25 Zyloprim PO 300 mg DAILY DANAY Administration Aspirin 324 mg 02/28/18 09:00 03/02/18 08:24 Ecotrin PO 324 mg BID DANAY Administration Bisacodyl 10 mg 02/27/18 19:47 Dulcolax RECTALLY DAILY PRN Constipation Docusate Sodium 100 mg 02/27/18 21:00 03/01/18 20:58 Colace PO 100 mg HS DANAY Administration Fentanyl 75 mcg 03/01/18 08:15 03/02/18 07:37 Sublimaze IVP 75 mcg Q30MIN PRN Administration Pain Ferrous Sulfate 324 mg 03/01/18 08:00 03/02/18 08:23 Feosol PO 324 mg WB DANAY Administration Furosemide 40 mg 03/01/18 08:00 03/02/18 07:37 Lasix 40 Mg Tab PO 40 mg 0800,1400 DANAY Administration Losartan Potassium 50 mg 02/28/18 09:00 03/02/18 08:24 Cozaar PO 50 mg DAILY DANAY Administration Magnesium Hydroxide 30 ml 02/27/18 19:47 Mom PO DAILY PRN Constipation Minocycline HCl 100 mg 03/01/18 18:00 03/02/18 08:23 Minocin PO 03/08/18 21:30 100 mg BID DANAY Administration Ondansetron HCl 4 mg 02/27/18 19:47 03/02/18 07:36 Zofran IVP 4 mg Q6H PRN Administration Nausea Oxycodone HCl 15 mg 03/01/18 10:03 03/02/18 00:09 Roxicodone *Ir* PO 15 mg Q3H PRN Administration Pain Oxycodone HCl 30 mg 03/01/18 10:15 03/02/18 08:29 Oxycontin PO 30 mg Q12HR DANAY Administration Oxycodone/Acetaminophen 1 tab 02/27/18 19:47 03/01/18 09:13 Percocet 10/325 PO 1 tab Q4H PRN Administration Pain Oxycodone/Acetaminophen 1 - 2 tab 02/28/18 18:57 03/02/18 05:13 Percocet 5/325 PO 2 tab Q6H PRN Administration Pain Pantoprazole Sodium 40 mg 02/27/18 21:00 03/02/18 08:21 Protonix Iv IVP 40 mg BID DANAY Administration Polyethylene Glycol 17 gm 02/28/18 09:00 03/02/18 08:26 Miralax PO 17 gm DAILY DANAY Administration Potassium Chloride 10 meq 03/01/18 08:00 03/02/18 08:24 Micro-K 10 Meq Capsule PO 10 meq BIDBS DANAY Administration Pramipexole Dihydrochloride 0.25 mg 02/27/18 21:00 03/01/18 21:03 Mirapex PO Not Given HS DANAY Sodium Chloride 10 - 80 ml 02/27/18 13:43 03/02/18 07:38 Iv Flush IVF 10 ml PRN PRN Administration Flushing Sodium Chloride 10 ml 02/28/18 18:57 Iv Flush IV PRN PRN Flushing Warfarin Sodium 2.5 mg 03/02/18 12:00 Coumadin PO [email or web address] [facility] Warfarin Sodium 5 mg 03/01/18 12:00 03/01/18 12:40 Coumadin PO 5 mg [email or web address] [facility] Administration Discontinued Medications Generic Name Dose Route Start Last Admin Trade Name Freq PRN Reason Stop Dose Admin Aspirin 325 mg 02/27/18 21:00 02/28/18 07:55 Asa PO 325 mg BID DANAY Administration Fentanyl 50 mcg 02/28/18 10:36 02/28/18 10:42 Fentanyl IVP 50 mcg ONE TIME PRN Administration Fentanyl 75 mcg 02/28/18 12:44 02/28/18 12:46 Fentanyl IVP 75 mcg Q2HR PRN Administration Fentanyl 75 mcg 02/28/18 14:14 03/01/18 04:43 Fentanyl IVP 75 mcg Q30MIN PRN Administration Pain Ferrous Sulfate 324 mg 02/28/18 09:00 02/28/18 10:38 Feosol PO Not Given DAILY DANAY Sodium Chloride 1,000 mls @ 1,000 mls/hr 02/27/18 13:43 02/27/18 15:23 Normal Saline IV 02/27/18 14:42 Infused .Q1H ONE Infusion Sodium Chloride 1,000 mls @ 75 mls/hr 02/27/18 19:47 03/01/18 14:16 Normal Saline IV 75 mls/hr .[id number] DANAY Administration Cefazolin Sodium 2 g/ Sodium 100 mls @ 200 mls/hr 03/01/18 01:00 03/01/18 09: 44 Chloride IV 03/01/18 09:29 Infused Q8HR DANAY Infusion Ketorolac Tromethamine 15 mg 02/27/18 16:07 02/27/18 16:09 Toradol Inj IVP 02/27/18 16:08 15 mg O ONE Administration Losartan Potassium 50 mg 02/28/18 09:00 02/28/18 07:55 Cozaar PO 50 mg DAILY DANAY Administration Ondansetron HCl 4 mg 02/27/18 13:46 02/27/18 14:08 Zofran IVP 02/27/18 13:47 4 mg O ONE Administration Pharmacy Consult each 02/28/18 23:26 Pharmacy Consult - Fall Risk 02/28/18 23:27 ONE TIME ONE - Constitutional no acute distress, well nourished, cooperative - Routine HEENT Exam Head: Present: normocephalic ENT: Present: mucous membranes moist - Routine Neck Exam Absent: JVD, carotid bruit - Routine Chest/Breast/Axilla Exam Chest wall: Present: tenderness, pacemaker - Routine Respiratory Exam Present: CTA bilaterally. Absent: rales, wheezes - Routine Cardiovascular Exam Present: RRR, no murmur - Routine Abdominal Exam Present: soft, non tender - Routine Extremities Exam Present: edema - Routine Skin Exam Present: dry, warm, wounds - Routine Neurological Exam Present: alert, oriented X3 - Routine Psychiatric Exam Present: normal affect, normal thought process Results 03/01/18 04:35 03/02/18 04:25 Comprehensive Metabolic Panel 03/02/18 Range/Units 04:25 Sodium 143 (134-144) MEQ/L Potassium 4.1 (3.6-5) MEQ/L Chloride 106 (98-107) MEQ/L Carbon Dioxide 27 (22-30) MEQ/L BUN 21.0 H (9-20) MG/DL Creatinine 1.2 (0.8-1.5) mg/dL Glucose 88 (75-110) MG/DL Calcium 9.5 (8.4-10.2) MG/DL Intake and Output 03/01/18 03/02/18 03/02/18 22:59 06:59 14:59 Output Total 175 / 175 725 / 725 200 / 200 Balance -175 / -175 -725 / -725 -200 / -200 Output: Urine 175 / 175 725 / 725 200 / 200 Other: Urine Appearance Cloudy Cloudy Clear Urine Color Dark Yellow Dark Yellow Yellow Urine Odor Normal Normal # Voids 1 Weight 241 lb 6.499 oz 242 lb 8.136 oz Patient Weight 03/03/18 06:59 Weight 242 lb 8.136 oz Assessment and Plan - Assessment and Plan (1) Symptomatic bradycardia Current visit: Yes Status: Acute (2) Paroxysmal atrial fibrillation Current visit: Yes Status: Chronic (3) Thoracic aortic aneurysm without rupture Current visit: Yes Status: Chronic (4) Pulmonary hypertension Current visit: Yes Status: Chronic (5) Atherosclerotic heart disease of [place] coronary artery without angina pectoris Current visit: Yes Status: Chronic (6) Essential (primary) hypertension Current visit: Yes Status: Chronic (7) Mixed hyperlipidemia Current visit: Yes Status: Chronic - Assessment and Plan 02/28/18 Symptomatic bradycardia Current visit: Yes Status: Acute Dizziness and near syncope - Keep NPO - consent for single chamber permanent pacemaker - TSH - Mag 2.6 Paroxysmal atrial fibrillation Current visit: Yes Status: Chronic Slow RVR - Chronic anticoagulation on Coumadin (INR 1.43) - PCP ([facility]) manages INRs Thank you for allowing us to participate in the care of this patient. 03/01/18 Tenderness at incision, dressing removed, incision C/D/I - Tele and EKG paced, rate improved to 60-70s - CXR unremarkable, no pneumo - Remove sling 24hrs post, wear at night only for 3 weeks - No driving for raising elbow above the shoulder for 3 weeks - Incision check in 1 week - Minocycline 100mg po BID for 7 days 03/02/18 Still having a lot of LE pain, says chest tenderness is improved - Tele showed V paced rhythm Hospital Course Summary Disclaimer: The visit summary below is not to be considered part of the above Progress Note. Hospital Course: 02/27/18 Admit, observation status, unclear the hospitalist service. Primary care physician: Dr. Hart. Symptomatic bradycardia and near syncope Consult Dr. Rajput Hold Coumadin; anticipate pacemaker placement. Had supratherapeutic INR last week (6.6); on admission INR = 1.6. IVF - monitor for overload Epigastric pain, nausea, and weight loss History of ulcers - start Protonix IV BID Lipase normal, CT without clear etiology for pain Hgb only minimally low at 12.8 Surgical consult - Dr. 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 Consult wound team to evaluate MARTY Dressing changes daily per pt report Normal WBC, no fever, recent Cipro use, and pt/family report improvement - unlikely to have acute infection from chronic wounds Advanced Directives is DPOA + Living Will - no feeding tube Full Code <Artur Rjaput - Last Filed: 03/03/18 14:45> Exam Vital signs: Temperature 97.7 F 03/03/18 12:00 Pulse Rate 69 03/03/18 12:00 Respiratory Rate 10 03/03/18 12:00 Blood Pressure 138/79 03/03/18 12:00 Pulse Oximetry 98 03/03/18 12:00 Inpatient Medications: Generic Name Dose Route Start Last Admin Trade Name Freq PRN Reason Stop Dose Admin Acetaminophen 650 mg 02/27/18 19:47 02/28/18 08:45 Tylenol PO 650 mg Q5H PRN Administration Discomfort Allopurinol 300 mg 02/28/18 09:00 03/03/18 08:57 Zyloprim PO 300 mg DAILY DANAY Administration Aspirin 324 mg 02/28/18 09:00 03/03/18 08:56 Ecotrin PO 324 mg BID DANAY Administration Bisacodyl 10 mg 02/27/18 19:47 Dulcolax RECTALLY DAILY PRN Constipation Docusate Sodium 100 mg 02/27/18 21:00 03/02/18 21:13 Colace PO 100 mg HS DANAY Administration Fentanyl 75 mcg 03/01/18 08:15 03/02/18 07:37 Sublimaze IVP 75 mcg Q30MIN PRN Administration Pain Ferrous Sulfate 324 mg 03/01/18 08:00 03/03/18 08:57 Feosol PO 324 mg WB DANAY Administration Furosemide 40 mg 03/01/18 08:00 03/03/18 08:56 Lasix 40 Mg Tab PO 40 mg 0800,1400 DANAY Administration Losartan Potassium 50 mg 02/28/18 09:00 03/03/18 08:56 Cozaar PO 50 mg DAILY DANAY Administration Magnesium Hydroxide 30 ml 02/27/18 19:47 Mom PO DAILY PRN Constipation Minocycline HCl 100 mg 03/01/18 18:00 03/03/18 08:56 Minocin PO 03/08/18 21:30 100 mg BID DANAY Administration Ondansetron HCl 4 mg 02/27/18 19:47 03/03/18 10:14 Zofran IVP 4 mg Q6H PRN Administration Nausea Oxycodone HCl 15 mg 03/01/18 10:03 03/02/18 00:09 Roxicodone *Ir* PO 15 mg Q3H PRN Administration Pain Oxycodone HCl 40 mg 03/02/18 12:15 03/03/18 08:28 Oxycontin PO Not Given Q12HR DANAY Oxycodone/Acetaminophen 1 - 2 tab 02/28/18 18:57 03/02/18 15:02 Percocet 5/325 PO 1 tab Q6H PRN Administration Pain Oxycodone/Acetaminophen 2 tab 03/02/18 12:15 03/03/18 12:26 Percocet 10/325 PO 0.5 tab Q4H DANAY Administration Pantoprazole Sodium 40 mg 03/02/18 17:00 03/03/18 05:47 Protonix Tab PO 40 mg ACBID DANAY Administration Polyethylene Glycol 17 gm 02/28/18 09:00 03/03/18 08:56 Miralax PO 17 gm DAILY DANAY Administration Potassium Chloride 10 meq 03/01/18 08:00 03/03/18 08:57 Micro-K 10 Meq Capsule PO 10 meq BIDBS DANAY Administration Pramipexole Dihydrochloride 0.25 mg 02/27/18 21:00 03/02/18 21:12 Mirapex PO 0.25 mg HS DANAY Administration Sodium Chloride 10 - 80 ml 02/27/18 13:43 03/02/18 15:03 Iv Flush IVF 20 ml PRN PRN Administration Flushing Sodium Chloride 10 ml 02/28/18 18:57 03/03/18 10:14 Iv Flush IV 10 ml PRN PRN Administration Flushing Warfarin Sodium 2.5 mg 03/02/18 12:00 03/02/18 12:25 Coumadin PO 2.5 mg [email or web address] DANAY Administration Warfarin Sodium 5 mg 03/01/18 12:00 03/03/18 12:27 Coumadin PO 5 mg [email or web address] [facility] Administration Discontinued Medications Generic Name Dose Route Start Last Admin Trade Name Freq PRN Reason Stop Dose Admin Aspirin 325 mg 02/27/18 21:00 02/28/18 07:55 Asa PO 325 mg BID DANAY Administration Fentanyl 50 mcg 02/28/18 10:36 02/28/18 10:42 Fentanyl IVP 50 mcg ONE TIME PRN Administration Fentanyl 75 mcg 02/28/18 12:44 02/28/18 12:46 Fentanyl IVP 75 mcg Q2HR PRN Administration Fentanyl 75 mcg 02/28/18 14:14 03/01/18 04:43 Fentanyl IVP 75 mcg Q30MIN PRN Administration Pain Ferrous Sulfate 324 mg 02/28/18 09:00 02/28/18 10:38 Feosol PO Not Given DAILY DANAY Sodium Chloride 1,000 mls @ 1,000 mls/hr 02/27/18 13:43 02/27/18 15:23 Normal Saline IV 02/27/18 14:42 Infused .Q1H ONE Infusion Sodium Chloride 1,000 mls @ 75 mls/hr 02/27/18 19:47 03/01/18 14:16 Normal Saline IV 75 mls/hr .[id number] DANAY Administration Cefazolin Sodium 2 g/ Sodium 100 mls @ 200 mls/hr 03/01/18 01:00 03/01/18 09: 44 Chloride IV 03/01/18 09:29 Infused Q8HR DANAY Infusion Ketorolac Tromethamine 15 mg 02/27/18 16:07 02/27/18 16:09 Toradol Inj IVP 02/27/18 16:08 15 mg O ONE Administration Losartan Potassium 50 mg 02/28/18 09:00 02/28/18 07:55 Cozaar PO 50 mg DAILY DANAY Administration Ondansetron HCl 4 mg 02/27/18 13:46 02/27/18 14:08 Zofran IVP 02/27/18 13:47 4 mg O ONE Administration Oxycodone HCl 30 mg 03/01/18 10:15 03/02/18 08:29 Oxycontin PO 30 mg Q12HR DANAY Administration Oxycodone/Acetaminophen 1 tab 02/27/18 19:47 03/01/18 09:13 Percocet 10/325 PO 1 tab Q4H PRN Administration Pain Pantoprazole Sodium 40 mg 02/27/18 21:00 03/02/18 08:21 Protonix Iv IVP 40 mg BID DANAY Administration Pharmacy Consult each 02/28/18 23:26 Pharmacy Consult - Fall Risk [facility] 02/28/18 23:27 ONE TIME ONE Results 03/01/18 04:35 03/02/18 04:25 Intake and Output 03/02/18 03/03/18 03/03/18 22:59 06:59 14:59 Intake Total 540 / 540 400 / 400 480 / 480 Output Total 250 / 250 475 / 475 Balance 290 / 290 -75 / -75 480 / 480 Intake: Oral 540 / 540 400 / 400 480 / 480 Output: Urine 250 / 250 475 / 475 Other: Urine Appearance Clear Clear Urine Color Yellow Light Veronika Stool Color Brown Size of Bowel Movement Small # Voids 1 Weight 109.3 kg Patient Weight 03/04/18 06:59 Weight 109.3 kg Assessment and Plan - Assessment and Plan (1) Symptomatic bradycardia Current visit: Yes Status: Acute (2) Thoracic aortic aneurysm without rupture Current visit: Yes Status: Chronic (3) Paroxysmal atrial fibrillation Current visit: Yes Status: Chronic (4) Pulmonary hypertension Current visit: Yes Status: Chronic (5) Atherosclerotic heart disease of [place] coronary artery without angina pectoris Current visit: Yes Status: Chronic (6) Essential (primary) hypertension Current visit: Yes Status: Chronic (7) Mixed hyperlipidemia Current visit: Yes Status: Chronic - Attestation Attestation Narrative: 03/03/18 14:45 Recommendation After examining the patient I agree with the above assessment. I am involved in the formulation of the patient's plan of care. Hospital Course Summary Disclaimer: The visit summary below is not to be considered part of the above Progress Note.
[2018-03-02] MEDS ORDERED: WARFARIN 2.5 MG TABLET PO SCH (12:00)
--- NOTE | 2018-03-02 12:35 | Progress Note ---
- Date 03/02/18 Subjective: Mr. Machado is a 72 year old male who has been feeling poorly for the last 5 weeks , possibly longer. He has been on 3 rounds of Cipro, 15 days on and 15 days off , a couple of months ago, treating his chronic leg wounds. He has had chronic ulcers to both legs, left > right for years, and currently is seeing [facility]. They've been seeing improvements with medi-honey treatments and he changes his dressings daily in the morning. He, his , and daughter all report that his wounds are looking better. It's also been helpful for him to follow the instructions to stay off of his feet (he's been instructed to stay off his feet x 6 months, and has been abiding by these directions for the last 5 weeks). He also recently finished a course of amoxicillin for sinusitis. During the time he's been on antibiotics, he began to have mild epigastric pain intermittently with food. His symptoms progressed, and any time he ate, he had a "punching" sensation to his epigastrium. He altered his diet and has only been eating pudding, cream of wheat, soup, and protein drinks. He's been nauseated but hasn't been vomiting. He's lost 30-40 lbs since being on the antibiotics. His pain reminds him of when he had ulcers (which came from taking too many Aleve to alleviate his leg pain). His sinusitis has cleared up. He's had increasing dizziness and lightheadedness. He also reports that he's been having elevated INRs, which peaked at 6.6 last week. He stopped his Coumadin, and INRs have been followed by his PCP, Dr. Hart. On 02/26/18, his symptoms culminated and he nearly passed out while on the stool. He also had chest pain, which was a new symptom. He was so weak in general he wasn't even to get out of bed. He saw Dr. Hart on 02/27/18, and had a SBP of 80 mm Hg and he was bradycardic. She recommended for him to go to the ED. his blood pressure had improved, but he still had occasional low readings with an MAP in the upper 60s to low 70s. However, he was very bradycardic with rates in the 30s to 40s. Labs showed a normal white count at 7.6. His INR was low at 1.65. BUN was elevated at 41 and creatinine was slightly above baseline at 1.6. Troponin was negative. He was given a shot of Toradol to help with this discomfort. He also had a CT scan of his abdomen and pelvis with contrast to look at his abdominal pain with nausea and weight loss. This showed prominent pelvic lymph nodes, similar to previous studies, but nothing acute. Dr. Rajput was notified, and he recommended hospital admission for pacemaker, but given his chronic wounds, recommended for him to be admitted under the hospitalist service. Given his hemodynamic instability, the patient was admitted to the critical care unit on . He underwent PPM implantation on 02/28. In addition, he underwent a beside mechanical debriding of his LE wounds at the beside by the wound and skin team on 02/28. Today, his biggest complaint is lack of pain control. He does not think po meds are satisfactory. Most of the pain is in the LE but occasionally his PPM site will hurt but that is better than it was yesterday. He denies fevers or chills. No cough or sputum. No SOA. He denies abdominal pain at present. He denies N/V. He reports his bowel are moving. He has a baez in place. Objective Vital signs: Temperature 97.8 F 03/02/18 11:26 Pulse Rate 69 03/02/18 11:26 Respiratory Rate 14 03/02/18 11:26 Blood Pressure 123/70 03/02/18 11:26 Pulse Oximetry 94 03/02/18 11:26 Height/Weight/BMI: Height 1.83 m Weight 110 kg Body Mass Index 32.7 Comments: Gen: alert and oriented. NAD Skin: warm and dry, bilateral legs wrapped, PPM site looks good. Mild ecchymosis. HEENT: NC/AT PERRL, EOMI, Sclera, lids and conjunctiva wnl, MMM, OP clear Neck: supple. No JVD, Carotids 2+ without bruits. Lungs: clear, No rales, rhonchi, wheezes. CV: regular. No murmur, rub or gallop Abd: soft. NT/ND, +BS MS: 1+ edema on the right 2+ on the lwft. Good strength and ROM of upper ext. Does not want to move the lower ext. . Neuro: No focal deficit Psy: normal mood and affect Results - Labs CBC & Chem 7: 03/01/18 04:35 03/02/18 04:25 Assessment and Plan (1) Symptomatic bradycardia Current visit: Yes Status: Acute Assessment and Plan: Assessment/Plan: Atrial fibrillation with symptomatic bradycardia -near syncope. -S/P single chamber pacemaker by Dr. Rajput on 02/28/18 -Tele shows V pacing -On Coumadin Epigastric pain, nausea -Improved with PPI Subtherapeutic INR -trending up Coronary artery disease. -Minimal per HC 2011 -No angina H/O Systolic congestive heart failure. -EF 25-30% in 2011 but 50-55% in 2017. -No signs of HF at this time Hypertension -Reasonable readings on Losartan 50mg daily, Chronic nonhealing ulcers to both lower extremities. -Wound and skin assisting as well as Dr. Fleming Peripheral neuropathy. GERD. -On PPI History of gastric ulcers from Aleve. -On PPI Seasonal allergies. Gout. -On allopurinol Obesity with BMI of 31.7 Prophylaxis OAC and PPI - Physician Narrative Narrative: Date: 03/02/18 Time: 1222 Hospital Course Summary Disclaimer: The visit summary below is not to be considered part of the above Progress Note. Hospital Course: 02/27/18 Admit, observation status, unclear the hospitalist service. Primary care physician: Dr. Hart. Symptomatic bradycardia and near syncope Consult Dr. Rjaput Hold Coumadin; anticipate pacemaker placement. Had supratherapeutic INR last week (6.6); on admission INR = 1.6. IVF - monitor for overload Epigastric pain, nausea, and weight loss History of ulcers - start Protonix IV BID Lipase normal, CT without clear etiology for pain Hgb only minimally low at 12.8 Surgical consult - Dr. 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
[2018-03-02] MEDS: Oxycodone CR 20 MG TABLET PO SCH ×2 (15:03→21:14)
[2018-03-02] MEDS: Oxycodone/Apap 10/325 1 TAB PO SCH ×3 (15:03→21:13)
[2018-03-02] MEDS: PANTOPRAZOLE 40 MG TABLET PO SCH (16:32)
[2018-03-02] MEDS: PRAMIPEXOLE 0.25 MG TABLET PO SCH (21:12)
[2018-03-02] MEDS: DOCUSATE SODIUM 100 MG CAPSULE PO SCH (21:13)
[2018-03-03] MEDS: Oxycodone/Apap 10/325 1 TAB PO SCH ×5 (00:12→17:04)
[2018-03-03] MEDS: ONDANSETRON 4 MG/2 ML INJECTION IVP PRN ×2 (03:45→10:14)
[2018-03-03] MEDS: PANTOPRAZOLE 40 MG TABLET PO SCH ×2 (05:47→18:20)
[2018-03-03] MEDS: Oxycodone CR 20 MG TABLET PO SCH (08:28)
[2018-03-03] MEDS: --POM--LOSARTAN 100 MG TABLET PO SCH (08:56)
[2018-03-03] MEDS: --POM--ASPIRIN *EC* 81 MG TABLET PO SCH (08:56)
[2018-03-03] MEDS: POLYETHYL GLYCOL 3350 17gm PACKET PO SCH (08:56)
[2018-03-03] MEDS: MINOCYCLINE 100 MG CAPSULE PO SCH (08:56)
[2018-03-03] MEDS: FUROSEMIDE 40 MG TABLET PO SCH ×2 (08:56→14:48)
[2018-03-03] MEDS: --POM--ALLOPURINOL 300 MG TABLET PO SCH (08:57)
[2018-03-03] MEDS: FERROUS SULFATE 324 MG PO SCH (08:57)
--- NOTE | 2018-03-03 11:01 | Discharge Summary ---
Discharge Information Date of admission: 02/28/18 16:44 Anticipated date of discharge: 03/03/18 Attending Physician: Charlotte Barrow MD Primary care physician: Winnie Hart DO Consults: Dr. Fleming general surgery Dr. Rajput, Cardiology - Discharge Diagnosis (1) Symptomatic bradycardia Status: Acute Chronic leg wounds permanent afib on chronic OAC SSS s/p near syncope Symptomatic bradycardia s/p PPM HTN CAD Systolic HF chronic GERD PUD - Procedures Procedures: Wound care Single chamber PPM placement - Laboratory Labs: 03/01/18 04:35 03/02/18 04:25 - Radiology Radiology: CT abdomen and pelvis 03/02/18 IMPRESSION: Mild the prominent pelvic lymph nodes, similar to prior exam. No evidence for infectious or inflammatory process. No evidence for mass or adenopathy. CXR x3, all okay History of Present Illness HPI: Mr. Machado is a 72 year old male who has been feeling poorly for the last 5 weeks , possibly longer. He has been on 3 rounds of Cipro, 15 days on and 15 days off , a couple of months ago, treating his chronic leg wounds. He has had chronic ulcers to both legs, left > right for years, and currently is seeing [facility]. They've been seeing improvements with medi-honey treatments and he changes his dressings daily in the morning. He, his , and daughter all report that his wounds are looking better. It's also been helpful for him to follow the instructions to stay off of his feet (he's been instructed to stay off his feet x 6 months, and has been abiding by these directions for the last 5 weeks). He also recently finished a course of amoxicillin for sinusitis. During the time he's been on antibiotics, he began to have mild epigastric pain intermittently with food. His symptoms progressed, and any time he ate, he had a "punching" sensation to his epigastrium. He altered his diet and has only been eating pudding, cream of wheat, soup, and protein drinks. He's been nauseated but hasn't been vomiting. He's lost 30-40 lbs since being on the antibiotics. His pain reminds him of when he had ulcers (which came from taking too many Aleve to alleviate his leg pain). His sinusitis has cleared up. He's had increasing dizziness and lightheadedness. He also reports that he's been having elevated INRs, which peaked at 6.6 last week. He stopped his Coumadin, and INRs have been followed by his PCP, Dr. Hart. On 02/26/18, his symptoms culminated and he nearly passed out while on the stool. He also had chest pain, which was a new symptom. He was so weak in general he wasn't even to get out of bed. He saw Dr. Hart on 02/27/18, and had a SBP of 80 mm Hg and he was bradycardic. She recommended for him to go to the ED. his blood pressure had improved, but he still had occasional low readings with an MAP in the upper 60s to low 70s. However, he was very bradycardic with rates in the 30s to 40s. Labs showed a normal white count at 7.6. His INR was low at 1.65. BUN was elevated at 41 and creatinine was slightly above baseline at 1.6. Troponin was negative. He was given a shot of Toradol to help with this discomfort. He also had a CT scan of his abdomen and pelvis with contrast to look at his abdominal pain with nausea and weight loss. This showed prominent pelvic lymph nodes, similar to previous studies, but nothing acute. Dr. Rajput was notified, and he recommended hospital admission for pacemaker, but given his chronic wounds, recommended for him to be admitted under the hospitalist service. Given his hemodynamic instability, the patient was admitted to the critical care unit. Objective Vital signs: Temperature 98.4 F 03/03/18 08:37 Pulse Rate 69 03/03/18 08:37 Respiratory Rate 20 03/03/18 08:37 Blood Pressure 117/70 03/03/18 08:37 Pulse Oximetry 96 03/03/18 08:37 Height/Weight/BMI: Height 1.83 m Weight 109.3 kg Body Mass Index 32.7 Comments: Gen: alert and oriented. NAD Skin: warm and dry, bilateral legs wrapped, PPM site looks good. Mild ecchymosis. HEENT: NC/AT PERRL, EOMI, Sclera, lids and conjunctiva wnl, MMM, OP clear Neck: supple. No JVD, Carotids 2+ without bruits. Lungs: clear, No rales, rhonchi, wheezes. CV: regular. No murmur, rub or gallop Abd: soft. NT/ND, +BS MS: 1+ edema on the right 2+ on the left. Good strength and ROM of upper ext. Does not want to move the lower ext. . Neuro: No focal deficit Psy: normal mood and affect Hospital Course This is a general summary of the patient's hospital course. For more details refer to the complete medical record. Hospital course: Mr. Machado was admitted on 423 with multiple complaints including worsening leg pain, epigastric discomfort, nausea, dizziness and lightheadedness, hypotension and bradycardia. He does have an underlying atrial fibrillation/SSS syndrome. Gen. surgery was consulted as well as wound and scan to work on his legs. Cardiology was consultative to assist with his bradycardia. The patient ultimately underwent a single chamber pacemaker implantation. The patient did well however he had multiple pain issues particularly when they worked on his leg wounds. It took a while to get him off IV pain management and on to oral pain management. He also has a lot of anxiety about having pain. His Coumadin was sub therapeutic when he arrived and it was held for the pacemaker and now he is getting it back up to therapeutic range. He has not had any problems with their syncope, lightheadedness or dizziness since. His epigastric pain improved with the addition of a proton pump inhibitor. He was felt to be stable to discharged back home with routine wound care. He will go home on oxycodone both long-acting and short acting to assist with his pain of his lower extremities. He has been instructed to take one of the short acting doses approximately an hour before presenting to the wound clinic for wound care. He would also benefit from taking and Ativan or Xanax at about the same time. Time spent with patient: 25 - 35 minutes Resuscitation Status: Full Code Discharge Plan - Discharge Disposition Disposition: Discharged Home, Self-Care *Condition: Stable Reason For Visit (Visit label in EMR): symptomatic bradycardia - Discharge Medications *Discharge Medications: New Acetaminophen [Tylenol] 650 mg PO Q5H PRN tablet PRN Reason: Discomfort Bisacodyl Supp [Dulcolax] 10 mg RECTALLY DAILY PRN supp PRN Reason: Constipation Milk of Magnesia [Mom] 30 ml PO DAILY PRN udc PRN Reason: Constipation Minocycline [Minocin] 100 mg PO BID #10 cap Oxycodone *IR* [Roxicodone *Ir*] 15 mg PO Q3H PRN #60 tablet PRN Reason: Pain Pantoprazole Tab [Protonix Tab] 40 mg PO ACBID #60 tab Oxycodone CR [Oxycontin] 40 mg PO Q12HR #20 tablet Continue Garlic [Garlic Oil] 1,000 mg PO DAILY #0 Cod Liver Oil 1 each PO DAILY Aspirin [ASA] 325 mg PO BID Cyanocobalamin (Vitamin B-12) [Vitamin B-12] 2,000 mcg PO DAILY Docusate Sodium [Colace] 200 mg PO HS Elsie 550 mg PO BID Resver/Wine/Bfl/Grpsd/Pc/C/Grp [Red Wine Complex Capsule] 1 each PO BID Vitamin E 100 unit PO DAILY levOCARNitine [l-Carnitine] 500 mg PO BID Zinc 50 mg PO BID Potassium Chloride [Klor-Con 10] 10 meq PO BID Allopurinol [Zyloprim] 300 mg PO DAILY Losartan Potassium [Cozaar] 50 mg PO DAILY Ferrous Sulfate [Iron] 325 mg PO DAILY Fluticasone Propionate 1 spray EA NOSTRIL DAILY Warfarin Sodium [Coumadin] 5 mg PO VARGAS,,FR #0 Warfarin Sodium 2.5 mg PO ,,,SA #0 Pramipexole [Mirapex] 0.25 mg PO HS PEG 3350 17gm PACKET [Miralax] 17 gm PO DAILY Furosemide [Lasix 40 mg Tab] 40 mg PO BID Discontinued Oxycodone HCl/Acetaminophen [Oxycodon-Acetaminophen 7.5-325] 1 - 2 tab PO Q4- 6HPRN PRN PRN Reason: Pain - Discharge Packet/Instructions *Diet: Resume heart healthy diet. *Activity: Limit activity for 2 days. No lifting more than 10 pounds, no pushing or pulling for 1 week. No raising your left elbow over your shoulder for 3 weeks. No driving for 3 weeks. Wear your sling at night only for 3 weeks. New prescriptions: Minocycline 100 mg by mouth every morning and evening. *Pain Management/Treatment: Over the counter pain medication if needed. *Wound Care: Keep site clean and dry. No tub baths or swimming for 1 week. You may shower. *Expected Signs/Symptoms: Bruising and tenderness at the site. *Notify Physician if: Site is bleeding, abnormal drainage, increased pain or fever of 101.5 or more. *During Business Hours Contact: Call Dr. Rajput's office at [phone]. *After Business Hours Contact: Please call [phone] and have the cryptographic machine operator page the physician. *Pending Lab/Results: No Pending Lab - Referrals/Follow Up *Referrals/Follow Up: Artur Rajput MD [Physician] - 03/08/18 1:00 pm Jono Fleming MD [Physician] - 3 Days (Pt has appt with wound care on tuesday ) Winnie Hart DO [Primary Care Provider] - 1 Week - Patient Handouts - Dismissal Complete Discharge Instructions are:: Complete Physician Narrative - Narrative Attestation Narrative: Date: 03/03/18 Time: [id number]
[2018-03-03] MEDS: WARFARIN 5 MG TABLET PO SCH (12:27)
[2018-03-03 12:34] VITALS: RESP 10; TEMP 97.7; O2SAT 98
[2018-03-03 14:54] VITALS: BP 102/63
[2018-03-03 16:02] VITALS: PULSE 70
== END 2018-03-03 18:48 | disposition home or self-care (01) | DRG 243 ==
LOC: ED 11:51 → CCU 11:51 → SUATTDRO 02-28 16:44 → SRG 02-28 18:40
PROVIDERS: ADMIT Hospitalist; ATTEND Internal Medicine Cardiovascular Disease